=== PATIENT | male | born 1965 | race African-American/Black ===

== ENCOUNTER 2017-12-23 07:14 | Inpatient (IN) | payer MEDICAID ==
[~2017-12-23] VITALS: Ht 185.4 cm; Wt 86.7 kg
[2017-12-23] MEDS ORDERED: MAGNESIUM CITRATE 300ML SOLUTION PO ONE (08:00)
[2017-12-23] MEDS ORDERED: KETOROLAC 30MG/ML VIAL IM ONE (09:00)
[2017-12-23] MEDS ORDERED: DIATR MEGLU/DIATRIZOATE SOLN 30ML ONE (11:43)
[2017-12-23 12:03] LABS: BASOPHILS % 0.5 % (0.0-2.0); EOSINOPHILS % 0.4 % (0.0-5.0); HEMATOCRIT. 41.9 % (42.0-52.0); HEMOGLOBIN. 13.9 g/dL (14.0-18.0); MEAN CORPUSCULAR VOLUME 99.1 fL (80.0-94.0); MONOCYTES % 6.9 % (2.0-8.0); NEUTROPHILS % 82.2 % (40.0-76.0); PLATELET 249 x1000/uL (130-400); RED BLOOD CELL COUNT 4.23 mill/uL (4.7-6.1); RED CELL DISTRIBUTION WIDTH 12.1 % (11.6-14.6)
[2017-12-23 12:04] LABS: CHLORIDE 102 mEq/L (98-107)
[2017-12-23 12:05] LABS: PROTHROMBIN TIME 10.4 sec (9.1-11.1)
[2017-12-23] MEDS ORDERED: CALCIUM CHLORIDE 1GM/10ML SYR IV ONE (12:30)
[2017-12-23] MEDS ORDERED: SODIUM POLYSTYRENE SULFONATE 15 G/60 ML BOT PO ONE (12:30)
[2017-12-23] MEDS ORDERED: INSULIN REGULAR (HUMULIN R) 300UNITS/3ML IV ONE (12:30)
[2017-12-23] MEDS ORDERED: DEXTROSE 50% WATER 50ML SYRINGE IV ONE (12:30)
[2017-12-23] MEDS ORDERED: SODIUM BICARBONATE 8.4% 1 MEQ/ML 50ML SYR IV ONE (12:30)
[2017-12-23] MEDS ORDERED: HYDROCODONE/ACETAMINOPHEN 5/325MG TABLET PO PRN (14:00)
[2017-12-23] MEDS ORDERED: ACETAMINOPHEN 650MG SUPP PR PRN (14:00)
[2017-12-23] MEDS ORDERED: MAGNESIUM/ALUMINUM HYDROXIDE/SIMETHICONE 30ML UDC PO PRN (14:00)
[2017-12-23] MEDS ORDERED: CLONIDINE 0.1MG TABLET PO PRN (14:00)
[2017-12-23] MEDS ORDERED: ONDANSETRON HCL 4MG/2ML INJ IV PRN (14:00)
[2017-12-23] MEDS ORDERED: ACETAMINOPHEN 325MG TABLET PO PRN (14:00)
[2017-12-23] MEDS ORDERED: ACETAMINOPHEN 650MG/20.3ML UDC GT PRN (14:00)
[2017-12-23 15:45] VITALS: BP 164/100
[2017-12-23 16:00] VITALS: BP 164/100
[2017-12-23] MEDS: DOCUSATE SODIUM 100MG CAPSULE PO SCH (17:00)
[2017-12-23] MEDS ORDERED: MORPHINE SULFATE 4 MG/ML CPJ (NOT FOR IM USE) IV PRN ×2 (17:15)
[2017-12-23 18:00] VITALS: BP 153/91
[2017-12-23] MEDS: AMLODIPINE 10MG TABLET PO SCH (18:23)
[2017-12-23] MEDS: SODIUM CHLORIDE 0.9% 1,000 ML IV SCH (18:23)
[2017-12-23 19:21] LABS: AMYLASE 65 IU/L (25-115)
[2017-12-23 19:27] LABS: CREATINE KINASE 70 IU/L (39-308)
[2017-12-23 19:28] LABS: CREATINE KINASE MB FRACTION < 1.0 ng/mL (0.5-3.6)
[2017-12-23 20:00] VITALS: BP 149/95
[2017-12-23] MEDS ORDERED: SENNOSIDES/DOCUSATE SOD 8.6/50MG TABLET PO PRN (21:00)
[2017-12-23] MEDS ORDERED: CEFTRIAXONE SODIUM 1 G/VIAL IV ONE (21:15)
[2017-12-23] MEDS ORDERED: CEFTRIAXONE 1 G PREMIX 50 ML IV NR (23:30)
[2017-12-24] VITALS: BP 118/70
[2017-12-24] MEDS: IPRATROPIUM/ALBUTEROL 0.5-3(2.5)MG/3ML NEB INH SCH ×2 (02:31→20:47)
[2017-12-24] MEDS: SODIUM CHLORIDE 0.9% 1,000 ML IV SCH ×4 (03:11→19:52)
[2017-12-24 04:00] VITALS: BP 127/79
[2017-12-24 06:18] LABS: CHLORIDE 104 mEq/L (98-107)
[2017-12-24 06:21] LABS: BASOPHILS % 0.5 % (0.0-2.0); EOSINOPHILS % 1.2 % (0.0-5.0); HEMATOCRIT. 36.6 % (42.0-52.0); HEMOGLOBIN. 12.5 g/dL (14.0-18.0); LYMPHOCYTES % 13.3 % (20.0-50.0); MEAN CORPUSCULAR HEMOGLOBIN 33.7 pg (28.0-32.0); MEAN CORPUSCULAR VOLUME 98.8 fL (80.0-94.0); MEAN PLATELET VOLUME 8.2 fl (7.4-10.4); MONOCYTES % 9.1 % (2.0-8.0); NEUTROPHILS % 75.9 % (40.0-76.0); PLATELET 238 x1000/uL (130-400); RED CELL DISTRIBUTION WIDTH 11.9 % (11.6-14.6)
[2017-12-24 06:39] LABS: PHOSPHORUS 5.3 mg/dL (2.5-4.9)
[2017-12-24 06:40] LABS: LDL CHOLESTEROL 92 mg/dL (5-100)
[2017-12-24 06:42] LABS: HDL CHOLESTEROL 41 mg/dL (40-59)
[2017-12-24 06:44] LABS: CREATINE KINASE 61 IU/L (39-308)
[2017-12-24 06:45] LABS: CREATINE KINASE MB FRACTION < 1.0 ng/mL (0.5-3.6); T4 FREE 0.73 ng/dL (0.76-1.46)
[2017-12-24] MEDS ORDERED: LEVOTHYROXINE SODIUM 175MCG TABLET PO SCH (07:20)
[2017-12-24 08:00] VITALS: BP 154/97
[2017-12-24 08:05] LABS: CLARITY URINE CLEAR (CLEAR); KETONES URINE NEGATIVE (NEGATIVE); LEUKOCYTE ESTERASE URINE 2+ (NEGATIVE); NITRITE URINE NEGATIVE (NEGATIVE); OCCULT BLOOD URINE 3+ (NEGATIVE); PH URINE 6.5 (4.5-8.0); PROTEIN URINE NEGATIVE (NEGATIVE); SPECIFIC GRAVITY URINE 1.005 (1.005-1.030); UROBILINOGEN URINE 0.2 E.U./dL (0.2-1.0)
[2017-12-24 08:56] LABS: COLOR URINE PALE YELLOW (YELLOW)
[2017-12-24] MEDS: DOCUSATE SODIUM 100MG CAPSULE PO SCH ×2 (09:00→17:47)
[2017-12-24 10:07] LABS: METHADONE URINE SCREEN NEGATIVE (NEGATIVE)
[2017-12-24 10:09] LABS: CANNABINOID URINE SCREEN NEGATIVE (NEGATIVE); OPIATES URINE SCREEN NEGATIVE (NEGATIVE); PHENCYCLIDINE URINE SCREEN NEGATIVE (NEGATIVE)
[2017-12-24 10:10] LABS: *AMPHETAMINES SCREEN URINE NEGATIVE (NEGATIVE); *BARBITURATES SCREEN URINE NEGATIVE (NEGATIVE); *BENZODIAZEPINES SCREEN URINE NEGATIVE (NEGATIVE); *COCAINE SCREEN URINE NEGATIVE (NEGATIVE)
[2017-12-24 12:00] VITALS: BP 149/90
[2017-12-24 12:44] LABS: HEPATITIS B SURFACE ANTIGEN NEGATIVE
[2017-12-24 13:11] LABS: HEPATITIS B CORE AB IGM NEGATIVE
[2017-12-24 13:12] LABS: HEPATITIS A AB IGM NEGATIVE (NEGATIVE)
[2017-12-24] MEDS ORDERED: IOPAMIDOL 61% 300/15 ML VIAL IT ONE (13:21)
[2017-12-24] MEDS ORDERED: GLYCOPYRROLATE 0.2 MG/ML 2ML VIAL ONE (13:29)
[2017-12-24] MEDS ORDERED: NEOSTIGMINE METHYLSULFATE 1MG/ML 10 ML VIAL ONE (13:29)
[2017-12-24] MEDS ORDERED: MIDAZOLAM HCL 2 MG/2 ML VIAL ONE (13:29)
[2017-12-24] MEDS ORDERED: PROPOFOL 200MG/20ML VIAL IV ONE (13:29)
[2017-12-24] MEDS ORDERED: FENTANYL CITRATE/PF 50MCG/ML 2ML VIAL ONE (13:29)
[2017-12-24] MEDS ORDERED: ROCURONIUM BROMIDE 10MG/ML VIAL 5ML IV ONE (13:29)
[2017-12-24] MEDS ORDERED: CEFAZOLIN SODIUM 1000MG/VIAL ONE (13:30)
[2017-12-24] MEDS ORDERED: LIDOCAINE HCL/PF 1% 10 MG/ML 5ML VIAL ONE (13:30)
[2017-12-24] MEDS ORDERED: PHENYLEPHRINE HCL 10 MG/ML 1ML (IV VIAL) IV ONE (13:30)
[2017-12-24] MEDS ORDERED: SUCCINYLCHOLINE CHLORIDE 200MG/10ML IV ONE (13:30)
[2017-12-24] MEDS ORDERED: EPHEDRINE SULFATE 50MG/ML VIAL ONE (13:30)
[2017-12-24] MEDS ORDERED: ONDANSETRON HCL 4MG/2ML INJ ONE (13:30)
[2017-12-24] MEDS ORDERED: SODIUM CHLORIDE 0.9% 10ML VIAL ONE (13:30)
[2017-12-24] MEDS ORDERED: METOCLOPRAMIDE HCL 10MG/2ML VIAL ONE (13:30)
[2017-12-24] MEDS ORDERED: SODIUM CHLORIDE 0.9% 1,000 ML IV ONE (14:17)
[2017-12-24] MEDS ORDERED: ONDANSETRON HCL 4MG/2ML INJ IV PRN (14:30)
[2017-12-24] MEDS ORDERED: MEPERIDINE HCL/PF 25MG/ML CPJ IV PRN (14:30)
[2017-12-24] MEDS ORDERED: HYDROMORPHONE HCL/PF 2MG/ML CPJ IV PRN (14:30)
[2017-12-24 17:15] VITALS: BP 153/92
[2017-12-24] MEDS: AMLODIPINE 10MG TABLET PO SCH (17:47)
[2017-12-24 20:00] VITALS: BP 131/74
[2017-12-25] VITALS: BP 126/90
[2017-12-25] MEDS: IPRATROPIUM/ALBUTEROL 0.5-3(2.5)MG/3ML NEB INH SCH ×4 (01:29→20:17)
[2017-12-25 04:00] VITALS: BP 144/93
[2017-12-25] MEDS: LEVOTHYROXINE SODIUM 200MCG TABLET PO SCH (05:54)
[2017-12-25] MEDS: HYDROCODONE/ACETAMINOPHEN 10/325MG TABLET PO PRN (06:01)
[2017-12-25 06:49] LABS: BASOPHILS % 0.6 % (0.0-2.0); EOSINOPHILS % 1.7 % (0.0-5.0); HEMOGLOBIN. 11.9 g/dL (14.0-18.0); LYMPHOCYTES % 18.4 % (20.0-50.0); MEAN CORPUSCULAR HEMOGLOBIN 33.5 pg (28.0-32.0); MEAN CORPUSCULAR VOLUME 98.1 fL (80.0-94.0); MEAN PLATELET VOLUME 8.1 fl (7.4-10.4); NEUTROPHILS % 70.3 % (40.0-76.0); PLATELET 262 x1000/uL (130-400); RED BLOOD CELL COUNT 3.56 mill/uL (4.7-6.1)
[2017-12-25 07:25] LABS: CHLORIDE 109 mEq/L (98-107)
[2017-12-25 07:37] LABS: PHOSPHORUS 4.9 mg/dL (2.5-4.9)
[2017-12-25 08:00] VITALS: BP 129/81
[2017-12-25] MEDS: SODIUM CHLORIDE 0.9% 1,000 ML IV SCH ×2 (08:30→20:32)
[2017-12-25] MEDS: DOCUSATE SODIUM 100MG CAPSULE PO SCH ×2 (10:21→18:01)
[2017-12-25] MEDS: AMLODIPINE 10MG TABLET PO SCH (10:21)
[2017-12-25 16:00] VITALS: BP 135/77
[2017-12-25 20:00] VITALS: BP 126/82
[2017-12-26] VITALS: BP 130/74
[2017-12-26] MEDS: IPRATROPIUM/ALBUTEROL 0.5-3(2.5)MG/3ML NEB INH SCH ×4 (01:25→20:01)
[2017-12-26 04:00] VITALS: BP 133/80
[2017-12-26] MEDS: HYDROCODONE/ACETAMINOPHEN 10/325MG TABLET PO PRN ×2 (06:29→18:12)
[2017-12-26] MEDS: LEVOTHYROXINE SODIUM 200MCG TABLET PO SCH (06:30)
[2017-12-26 06:39] LABS: BASOPHILS % 0.9 % (0.0-2.0); EOSINOPHILS % 3.3 % (0.0-5.0); HEMATOCRIT. 35.3 % (42.0-52.0); HEMOGLOBIN. 11.9 g/dL (14.0-18.0); LYMPHOCYTES % 22.8 % (20.0-50.0); MEAN CORPUSCULAR HEMOGLOBIN 33.2 pg (28.0-32.0); MEAN CORPUSCULAR VOLUME 98.7 fL (80.0-94.0); MEAN PLATELET VOLUME 7.9 fl (7.4-10.4); MONOCYTES % 9.1 % (2.0-8.0); NEUTROPHILS % 63.9 % (40.0-76.0); PLATELET 258 x1000/uL (130-400); RED BLOOD CELL COUNT 3.57 mill/uL (4.7-6.1); RED CELL DISTRIBUTION WIDTH 12.2 % (11.6-14.6)
[2017-12-26] MEDS: AMLODIPINE 10MG TABLET PO SCH (09:43)
[2017-12-26] MEDS: DOCUSATE SODIUM 100MG CAPSULE PO SCH ×2 (09:43→18:08)
[2017-12-26] MEDS ORDERED: SODIUM CHLORIDE 0.45% 1,000 ML IV SCH (10:00)
[2017-12-26 12:00] VITALS: BP 116/65
[2017-12-26] MEDS ORDERED: MAGNESIUM SULFATE 2 GM in DEXTROSE 5% WATER 50 ML IV NR (12:00)
[2017-12-26 16:00] VITALS: BP 121/67
[2017-12-26 20:00] VITALS: BP 154/94
[2017-12-27] VITALS: BP 132/88
[2017-12-27] MEDS: IPRATROPIUM/ALBUTEROL 0.5-3(2.5)MG/3ML NEB INH SCH ×3 (02:25→14:40)
[2017-12-27 04:00] VITALS: BP 118/78
[2017-12-27 06:06] LABS: EOSINOPHILS % 3.9 % (0.0-5.0); HEMATOCRIT. 37.8 % (42.0-52.0); HEMOGLOBIN. 12.6 g/dL (14.0-18.0); LYMPHOCYTES % 22.7 % (20.0-50.0); MEAN CORPUSCULAR VOLUME 99.1 fL (80.0-94.0); MEAN PLATELET VOLUME 7.9 fl (7.4-10.4); MONOCYTES % 9.5 % (2.0-8.0); NEUTROPHILS % 62.9 % (40.0-76.0); PLATELET 276 x1000/uL (130-400); RED BLOOD CELL COUNT 3.82 mill/uL (4.7-6.1); RED CELL DISTRIBUTION WIDTH 12.2 % (11.6-14.6)
[2017-12-27] MEDS: LEVOTHYROXINE SODIUM 200MCG TABLET PO SCH (06:30)
[2017-12-27 06:39] LABS: PHOSPHORUS 3.8 mg/dL (2.5-4.9)
[2017-12-27 08:00] VITALS: BP 130/86
[2017-12-27] MEDS ORDERED: MAGNESIUM CITRATE 300ML SOLUTION PO NR (10:30)
[2017-12-27] MEDS: AMLODIPINE 10MG TABLET PO SCH (10:58)
[2017-12-27] MEDS: DOCUSATE SODIUM 100MG CAPSULE PO SCH (10:58)
[2017-12-27 12:00] VITALS: BP 148/82
[2017-12-27] MEDS: HYDROCODONE/ACETAMINOPHEN 10/325MG TABLET PO PRN (14:40)
[2017-12-27] MEDS ORDERED: AMLO10TA80 PO (15:40)
[2017-12-27] MEDS ORDERED: SENN-3 PO (15:40)
[2017-12-27] MEDS ORDERED: SYN200 PO (15:40)
[2017-12-27 15:48] VITALS: BP 113/72
[2017-12-27 16:00] VITALS: BP 113/72
== END 2017-12-27 16:32 | disposition home or self-care (01) | DRG 465 ==
LOC: ER 07:26 → 6WST 12:43 → EDBEDREQTM 12:45 → EDBEDREQ 12:45 → ENRESERV 12:48 → 6WST 16:26
PROVIDERS: ADMIT Internal Medicine; ATTEND Internal Medicine
PROC: 0T788DZ Dilation of Bilateral Ureters with Intraluminal Device, Via Natural or Artificial Opening Endoscopic (ICD-10-PCS; principal; 2017-12-24 14:00)
DX: N13.2 Hydronephrosis with renal and ureteral calculous obstruction (principal); N17.9 Acute kidney failure, unspecified; E44.0 Moderate protein-calorie malnutrition; E87.2 Acidosis; I11.9 Hypertensive heart disease without heart failure; K59.00 Constipation, unspecified; E87.5 Hyperkalemia; E87.1 Hypo-osmolality and hyponatremia; E03.9 Hypothyroidism, unspecified; M54.9 Dorsalgia, unspecified; E11.9 Type 2 diabetes mellitus without complications; M43.26 Fusion of spine, lumbar region; E78.5 Hyperlipidemia, unspecified; G89.29 Other chronic pain; M41.9 Scoliosis, unspecified; Z79.4 Long term (current) use of insulin; Z79.890 Hormone replacement therapy; Z88.0 Allergy status to penicillin; Z91.14 Patient's other noncompliance with medication regimen; Z68.25 Body mass index [BMI] 25.0-25.9, adult
CPT/HCPCS: 36415; 71045; 74018; 74176; 76770; 80048; 80053; 80061; 80305; 81003; 82150; 82550; 82553; 82962; 83690; 83735; 84100; 84439; 84443; 84481; 84484; 84550; 85025; 85610; 86705; 86709; 86803; 87086; 87340; 93005; 93970; 94640; 96372; 96374; 96375; 99285; A4216; C1769; C2617; J0330; J0690; J0696; J1815; J1885; J2175; J2250; J2370; J2405; J2704; J2710; J2765; J3010; J3475; J3490; J7030; J7060; J7620; Q9963; Q9967

== ENCOUNTER 2018-02-03 06:15 | Emergency (ER) | payer MEDICAID, OTHER ==
[~2018-02-03] VITALS: Ht 182.9 cm; Wt 84.0 kg
[~2018-02-03 06:15] MED LIST: AMLO10TA80 PO; SENN-3 PO; SYN200 PO
[2018-02-03 09:12] VITALS: BP 119/73
== END 2018-02-03 09:14 | disposition home or self-care (01) ==
LOC: ER 06:15
DX: L73.9 Follicular disorder, unspecified (principal); B01.9 Varicella without complication; I10 Essential (primary) hypertension; E03.9 Hypothyroidism, unspecified; Z88.0 Allergy status to penicillin; Z87.442 Personal history of urinary calculi
CPT/HCPCS: 99283

== ENCOUNTER 2021-08-21 09:44 | Emergency (ER) | payer MEDICAID, OTHER ==
[~2021-08-21] VITALS: Ht 182.9 cm; Wt 83.0 kg
[2021-08-21 11:06] LABS: BASOPHILS % 0.6 % (0.0-2.0); EOSINOPHILS % 0.5 % (0.0-5.0); HEMATOCRIT. 35.9 % (42.0-52.0); HEMOGLOBIN. 11.8 g/dL (14.0-18.0); LYMPHOCYTES % 12.7 % (20.0-50.0); MEAN CORPUSCULAR HEMOGLOBIN 32.8 pg (28.0-32.0); MEAN CORPUSCULAR VOLUME 99.5 fL (80.0-94.0); MEAN PLATELET VOLUME 7.7 fl (7.4-10.4); MONOCYTES % 6.2 % (2.0-8.0); PLATELET 264 x1000/uL (130-400); RED BLOOD CELL COUNT 3.61 mill/uL (4.7-6.1); RED CELL DISTRIBUTION WIDTH 12.5 % (11.6-14.6)
[2021-08-21] MEDS ORDERED: SODIUM CHLORIDE 0.9% 1,000 ML IV ONE (11:30)
[2021-08-21 12:06] LABS: CHLORIDE 105 mEq/L (98-107)
[2021-08-21 14:18] VITALS: BP 157/100
== END 2021-08-21 14:20 | disposition home or self-care (01) ==
LOC: ER 09:44
DX: I12.9 Hypertensive chronic kidney disease with stage 1 through stage 4 chronic kidney disease, or unspecified chronic kidney disease (principal); N18.9 Chronic kidney disease, unspecified; E03.9 Hypothyroidism, unspecified; F12.10 Cannabis abuse, uncomplicated; Z88.0 Allergy status to penicillin
CPT/HCPCS: 36415; 80053; 85025; 93005; 96360; 99284; J7030; Z7610

== ENCOUNTER 2023-04-13 07:55 | Emergency (ER) | payer MEDICAID, OTHER ==
[~2023-04-13] VITALS: Ht 177.8 cm; Wt 86.0 kg
[2023-04-13 08:03] VITALS: O2SAT 98
[2023-04-13] MEDS ORDERED: IBUPROFEN 400MG TABLET PO ONE (09:00)
[2023-04-13] MEDS ORDERED: HYDROCODONE/ACETAMINOPHEN 5/325MG TABLET PO ONE (09:00)
[2023-04-13] MEDS ORDERED: KETOROLAC 60MG/2ML VIAL IM ONE (11:00)
[2023-04-13] MEDS ORDERED: HYDR-4009 MT (11:10)
[2023-04-13] MEDS ORDERED: DOCU-138 MT (11:10)
[2023-04-13] MEDS ORDERED: IBUP-2029 PO (11:10)
[2023-04-13] MEDS ORDERED: NALO4SPR BOTHNSTRLS (11:10)
[2023-04-13 11:25] LABS: CLARITY URINE CLEAR (CLEAR); COLOR URINE YELLOW (YELLOW); GLUCOSE URINE NEGATIVE (NEGATIVE); KETONES URINE 1+ (NEGATIVE); LEUKOCYTE ESTERASE URINE 2+ (NEGATIVE); NITRITE URINE NEGATIVE (NEGATIVE); OCCULT BLOOD URINE TRACE (NEGATIVE); PROTEIN URINE TRACE (NEGATIVE); SPECIFIC GRAVITY URINE 1.018 (1.005-1.030)
[2023-04-13 11:36] VITALS: BP 145/97; PULSE 95; RESP 18; TEMP 97.8
[2023-04-13 12:29] LABS: BACTERIA URINE 1+; RBC URINE NONE SEEN /hpf (0-2); SQUAMOUS EPITHELIAL CELL URINE NONE SEEN /lpf (RARE/1+); WBC URINE 25-50 /hpf (0-2); YEAST URINE NONE SEEN
== END 2023-04-13 11:43 | disposition home or self-care (01) ==
LOC: ER 07:55
DX: S32.009A Unspecified fracture of unspecified lumbar vertebra, initial encounter for closed fracture (principal); F12.10 Cannabis abuse, uncomplicated; I10 Essential (primary) hypertension; Z88.0 Allergy status to penicillin; Z86.39 Personal history of other endocrine, nutritional and metabolic disease; W01.0XXA Fall on same level from slipping, tripping and stumbling without subsequent striking against object, initial encounter; Y93.89 Activity, other specified; Y92.89 Other specified places as the place of occurrence of the external cause; Y99.8 Other external cause status
CPT/HCPCS: 81003; 87086; 72100; 96372; 99284; J1885; Z7610